=== PATIENT | female | born 2000 | race Caucasian/White ===

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

== ENCOUNTER 2020-03-06 13:49 | Emergency (ER) | payer BC ==
[~2020-03-06] VITALS: Ht 165.1 cm; Wt 97.5 kg
[2020-03-06 14:55] VITALS: BP 125/85
== END 2020-03-06 14:55 | disposition home or self-care (01) ==
LOC: M.ERS 13:49
DX: Z20.828 Contact with and (suspected) exposure to other viral communicable diseases (principal); F17.210 Nicotine dependence, cigarettes, uncomplicated; Z88.8 Allergy status to other drugs, medicaments and biological substances

== ENCOUNTER 2020-03-09 13:18 | Emergency (ER) | payer BC ==
[~2020-03-09] VITALS: Ht 165.1 cm; Wt 97.5 kg
[2020-03-09 14:14] VITALS: BP 152/74
== END 2020-03-09 14:14 | disposition home or self-care (01) ==
LOC: M.ERS 13:18
DX: B34.9 Viral infection, unspecified (principal); J45.909 Unspecified asthma, uncomplicated; G43.909 Migraine, unspecified, not intractable, without status migrainosus; F17.210 Nicotine dependence, cigarettes, uncomplicated; Z88.8 Allergy status to other drugs, medicaments and biological substances; Z20.828 Contact with and (suspected) exposure to other viral communicable diseases